=== PATIENT | female | born 1990 | race Caucasian/White ===

== ENCOUNTER 2016-09-19 16:27 | Inpatient (IN) | payer BC ==
--- NOTE | ~2016-09-19 | IDS ---
Interim Discharge Summary [facility] [address] [place]. [address] NAME: ALIZE ANTONIO : 89 STATUS : ADM IN [facility]#: [id number] AGE: 26 ADM/REG DATE : 09/19/16 MR#: [id number] REPORT SERV DATE: 09/22/16 DICTATED BY: JENNIFER MARINO DATE: 09/22/16 REPORT STATUS : Draft TRANSCRIBED BY: HERIBERTO DATE: 09/22/16 ADMISSION DATE: 09/19/2016 DISCHARGE DATE: CURRENT HOSPITAL DIAGNOSES: Recurrent deep vein thrombosis, left lower extremity. Possible hypercoagulable state. CONSULTATIONS: Dr. Borjas of Hematology and Dr. Presley of Vascular Surgery. PROCEDURES: 1. Venous Doppler of the lower extremities done on the showing extensive DVT in the left lower extremity. 2. Venogram done on the . CURRENT PHYSICAL FINDINGS AND HISTORY OF PRESENT ILLNESS: Please see initial dictated H and P by myself. In brief, the patient was accepted as a transfer from [facility] for recurrent lower extremity DVT, beginning several days prior to admission. HOSPITAL COURSE: Initial vital signs were clinically stable and afebrile. Records from outlying facility were reviewed, including her ultrasound, CT results. Initial lab work here was unremarkable as far as a BMP and CMP were concerned. She also had normal TSH and LFTs. HCG was negative. PAOLA was less than 1:40. CBC was unremarkable. D-dimer was 0.47, fibrinogen 422, INR 1.2. She has hypercoagulable lab, currently pending. The patient was admitted, placed on a heparin drip. Vascular was consulted as there was some concern of stent to stenosis on her outlying CT. Reasonable pain medications were given. Her home medications were started. Repeat ultrasound here seem to indicate acute DVT, somewhat concurrent with her transfer ultrasound. Vascular was consulted. They recommended venogram, which was done on the . The patient is currently postop without complications. Plan is to continue her hypercoagulable workup and recommend outpatient anticoagulant therapy, any further procedures per Vascular and coordinate care with her MECHANICS SUPERVISOR, who is planning a colposcopy in the near future. WARREN/HERIBERTO Jennifer Marino M.D. / [id number] CC: José Miguel Rebollar M.D.
--- NOTE | ~2016-09-19 | OP ---
Record Of Operation [facility] [address] [place]. [address] NAME: ALIZE ANTONIO : [birth year] STATUS : ADM IN [facility]#: [id number] AGE: 26 ADM/REG DATE : 09/19/16 MR#: [id number] REPORT SERV DATE: 09/26/16 DICTATED BY: RAHEEM PRESLEY DATE: 09/25/16 REPORT STATUS : Draft TRANSCRIBED BY: MODL DATE: 09/25/16 DATE OF PROCEDURE: 09/19/2016 PREOPERATIVE DIAGNOSIS: Deep venous thrombosis, left leg. POSTOPERATIVE DIAGNOSIS: Deep venous thrombosis, left leg. PROCEDURE: 1. Left leg venogram. 2. Percutaneous thrombectomy, left common femoral and iliac veins. 3. Angioplasty of left external iliac vein. SURGEON: Raheem Presley M.D. ANESTHESIA: General. COMPLICATIONS: None. ESTIMATED BLOOD LOSS: 1000. HISTORY: The patient is a 26-year-old female with a history of DVT. We actually performed thrombectomy two days ago, she rethrombosed. I started her on argatroban earlier today and plan is for repeat thrombectomy. This was discussed with the patient and mother, they expressed understanding and desired to proceed. DESCRIPTION OF PROCEDURE: The patient was taken to the operating room and placed in the supine position. She was given general anesthesia without complication. Her left thigh was prepped and draped in the sterile fashion. Ultrasound was used to identify the femoral vein in the proximal thigh. This was actually accessed with a micropuncture needle. Wire was passed easily. Needle was removed. Micropuncture sheath was placed. Wire was placed, sheath exchanged for an 8-Micronesian sheath. Venogram showed thrombus starting at the common femoral vein. Wire was placed. The 8-Micronesian Penumbra device with a separator was used to thrombectomize the common femoral and iliac veins. Venogram showed improvement in the proximal external iliac vein with residual thrombus. Additional thrombectomy was performed. Repeat venogram shows residual thrombus. Additional thrombectomy was performed. Venogram showed proximally to be prompt flow with no thrombus. There was still thrombus in the common femoral vein, distal external iliac vein. A 4-Kingston was passed through the 8- Micronesian sheath followed by 5-Kingston and thrombectomy was performed. Venogram shows improvement with some still residual thrombus. Distal thrombectomy was performed with device and separator. There was still distal thrombus after multiple additional attempts. The blood loss was close to 1000 at this point. It was felt minimizing blood loss would be imperative to rest of the case. The 5-Kingston was inflated in the proximal external iliac vein and 6 mg of tPA were infiltrated throughout the distal external iliac vein and this allowed set for eight minutes. Post venogram showed some minimal improved flow. There was essentially patent common femoral vein. External iliac vein was a residual thrombus distally with proximal external iliac vein and common iliac vein to be patent. A Record Of Operation [facility] [address] [facility] [place]. [address] NAME: ALIZE ANTONIO : 89 STATUS : ADM IN [facility]#: [id number] AGE: 26 ADM/REG DATE : 09/19/16 MR#: [id number] REPORT SERV DATE: 09/26/16 DICTATED BY: RAHEEM PRESLEY DATE: 09/25/16 REPORT STATUS : Draft TRANSCRIBED BY: HERIBERTO DATE: 09/25/16 10 x 40 balloon was used to angioplastied the external iliac vein followed by the common iliac vein. Final venogram shows these not to be widely patent with excellent prompt flow. No residual stenosis or thrombus. This was felt to be excellent result. The sheath was removed, pressure was held, hemostasis was achieved. The patient tolerated the procedure well. She was taken to the recovery room in stable condition. KATE/HERIBERTO Raheem Presley M.D. / [id number] CC: MD Adrianna Mancia M.D.
--- NOTE | ~2016-09-19 | HP ---
History And Physical [facility] [address] [place]. [address] NAME: ALIZE ANTONIO : [birth year] STATUS : ADM IN [facility]#: [id number] AGE: 26 ADM/REG DATE : 09/19/16 MR#: [id number] REPORT SERV DATE: 09/19/16 DICTATED BY: JENNIFER MARINO DATE: 09/19/16 REPORT STATUS : Draft TRANSCRIBED BY: MODL DATE: 09/19/16 DATE OF ADMISSION: 09/19/2016 CHIEF COMPLAINT: Pain and swelling, left lower extremity. HISTORY OF PRESENT ILLNESS: The patient is a 26-year-old female. She has a past history of multiple blood clots in the past, she states that she has had both left and right-sided, some have been associated with pulmonary embolism. She has had stenting done. She has had clot evacuations done in the past. She is not certain whether she has had an IVC filter placed in the past. She was originally diagnosed at the of her child. She states she was told that she had protein C, protein S, and lupus anticoagulant abnormalities. She was treated by food and nutrition services supervisor in [place]. She has moved down to the [facility] and has established care with Dr. Borjas. She states that she has been told now on review of her records she did not have the above deficiencies. Her previous anticoagulant regimens, she initially started with Coumadin. She did have recurrent clotting, but it was in association with low INRs. She states her targeted goal was above 3. She would get down as low as 1.9. She then went to Lovenox and then transitioned over to Xarelto. She did have a clotting on Xarelto, but there were some associated missed dose with the Xarelto. She then went back to Lovenox and then was transitioned to Eliquis. She is very specific that she has only missed one dose of the Eliquis, possibly Thursday or Thursday night. She had a remote dental procedure where she had to hold it, but she had no immediate problems, and it was a very brief hold. She went to [facility] and had an ultrasound showing a DVT. She requested transfer here for hematology consultation. PAST MEDICAL HISTORY: She states in addition to above, she has had ADD, epilepsy, anxiety, and depression. PAST SURGICAL HISTORY: She has had stent placements and thrombectomies in the past. MEDICATIONS: Currently awaiting Pharmacy. However, on her transfer records, she notes Klonopin 1 mg q.i.d., Lamictal 100, nortriptyline 50 b.i.d., Keppra 500 b.i.d., aspirin 81, and Eliquis 5 b.i.d. ALLERGIES: SHE STATES MORPHINE. FAMILY HISTORY: Both parents are living. She states both parents have trouble with blood clots, anxiety, and depression. Her father has been diagnosed with protein C as well as a grandmother and a sister. SOCIAL HISTORY: She is a obbox-scbxgrcbw-sib-day smoker. No EtOH. REVIEW OF SYSTEMS: HEENT: No complaints. CARDIOVASCULAR: No complaints. PULMONARY: As covered in HPI. GENITOURINARY: She states she has had an abnormal Pap smear and has procedure planned for History And Physical [address] [address] NAME: ALIZE ANTONIO : [birth year] STATUS : ADM IN [facility]#: [id number] AGE: 26 ADM/REG DATE : 09/19/16 MR#: [id number] REPORT SERV DATE: 09/19/16 DICTATED BY: JENNIFER MARINO DATE: 09/19/16 REPORT STATUS : Draft TRANSCRIBED BY: HERIBERTO DATE: 09/19/16 next week. NEUROMUSCULOSKELETAL: She complains of pain and cramping mostly in her left upper thigh. Otherwise 14-point review of systems is negative. PHYSICAL EXAMINATION: VITAL SIGNS: BP 103/55, temperature 97, pulse is 76, respirations 20, and sats 98%. GENERAL: She is awake, alert, and appropriate. HEENT: Normocephalic, atraumatic. Sclerae nonicteric. NECK: Supple. HEART: Regular rate and rhythm. LUNGS: Clear to auscultation. ABDOMEN: Nondistended. LOWER EXTREMITIES: She does not have any redness to the either lower extremity. She complains of pain in the left upper thigh. There does seem to be disproportional swelling in the left upper thigh. LABORATORY DATA: Lab from transferring facility: White count 6.1, H and H are 12.4 and 38.1, platelets are 277. Sodium 141, potassium 4.3, chloride 104, CO2 of 23, BUN and creatinine are 10 and 0.8 with a glucose of 97. Ultrasound report occlusive or near occlusive thrombus in the left lower extremity from the level of the superficial femoral vein to the calf veins. No DVT noted in the right lower extremity. Stents are noted extending into the common femoral veins bilaterally. CT abdomen and pelvis: No acute process is identified in the abdomen or pelvis. Stents are identified extending from the central inferior vena cava through the iliac vein into the common femoral veins bilaterally. The superior aspect of the stent which extends through the right iliac veins and into the right common femoral veins. It is significantly compressed and/or narrowed. The main portal vein, intrahepatic portal vein, and splenic veins are patent. Additional lab: Urinalysis with LE was 2+ moderate, blood was 3+, 10-15 wbc's, 1+ epithelial cells. HCG was negative. ASSESSMENT: 1. Deep venous thrombosis. 2. Suspicion of hypercoagulable state. 3. Recent abnormal Pap smear. 4. Possible urinary tract infection. PLAN: The patient has been admitted. She was transferred here on a heparin drip. We will consult Hematology for guidance on anticoagulants and further workup. We will review and continue home medications for chronic medical problems. Reasonable pain medications will be given. History And Physical [address] [address] NAME: ALIZE ANTONIO : [birth year] STATUS : ADM IN [facility]#: [id number] AGE: 26 ADM/REG DATE : 09/19/16 MR#: [id number] REPORT SERV DATE: 09/19/16 DICTATED BY: JENNIFER MARINO DATE: 09/19/16 REPORT STATUS : Draft TRANSCRIBED BY: HERIBERTO DATE: 09/19/16 TLF/HERIBERTO Jennifer Marino M.D. / [id number] CC: Jennifer Marino M.D. UNKNOWN
--- NOTE | ~2016-09-19 | OP ---
Record Of Operation [facility] [address] [place]. [address] NAME: ALIZE ANTONIO : [birth year] STATUS : ADM IN [facility]#: [id number] AGE: 26 ADM/REG DATE : 09/19/16 MR#: [id number] REPORT SERV DATE: 09/22/16 DICTATED BY: RAHEEM PRESLEY DATE: 09/22/16 REPORT STATUS : Draft TRANSCRIBED BY: MODL DATE: 09/22/16 DATE OF PROCEDURE: 09/22/2016 PREOPERATIVE DIAGNOSIS: Deep vein thrombosis, left leg with extensive pain and swelling. POSTOPERATIVE DIAGNOSIS: Deep vein thrombosis, left leg with extensive pain and swelling. PROCEDURE: 1. Left leg venogram. 2. Percutaneous thrombectomy, left common femoral vein and iliac veins. 3. Angioplasty, iliac veins. SURGEON: Raheem Presley M.D. ANESTHESIA: General. COMPLICATIONS: None. BLOOD LOSS: Minimal. HISTORY: The patient is a 26-year-old female with extensive DVT history, all treated in [place]. She presented with acute pain and swelling in her left leg after missing one dose of her anticoagulant. Ultrasound confirmed thrombus in her femoral and iliac vein stents. It was felt she would benefit from venogram with intervention due to her significant symptoms. It was discussed in detail with the patient and mother, they expressed understanding and desired to proceed. PROCEDURE IN DETAIL: The patient was taken to the operating room and placed in the supine position. She was given general anesthesia without complication. Her left groin and thigh were prepped and draped in sterile fashion. Ultrasound was used to identify the femoral vein below the area of the stents and thrombus. This was accessed with a micropuncture needle. Wire was passed easily. Needle was removed. Micropuncture sheath was placed. Venogram shows thrombus in the common femoral vein and iliac veins. There were stents that go from the inferior vena cava throughout both iliac and common femoral veins. Wire was passed easily into the inferior vena cava. The sheath was exchanged for an 8-Martiniquais sheath. The patient was on a heparin drip, which was continued throughout the case. The Zelante AngioJet was used to thrombectomize the stents from the common femoral vein to the IVC with total of 75 mL. These stents were then pulse-sprayed with 10 mg of tPA and let set for 20 minutes. The area was re-thrombectomized after 20 minutes with 75 mL. Venogram showed prompt flow. There was mild residual thrombus and irregularity in the iliac stents. This was re-thrombectomized for another 25 mL. Venogram shows prompt flow with residual stenosis. An 8 x 100 balloon was used to angioplasty the iliac veins. Post venogram shows mild residual irregularity in the mid iliac vein. This area was re-thrombectomized with another 25 mL. Final venogram shows the common femoral vein, iliac vein on the left, and the inferior vena cava stent to be widely patent with prompt flow with minimal residual irregularity, which was not significant. There was felt to be an excellent result. The Record Of Operation [facility] [address] [place]. [address] NAME: ALIZE ANTONIO : 89 STATUS : ADM IN [facility]#: [id number] AGE: 26 ADM/REG DATE : 09/19/16 MR#: [id number] REPORT SERV DATE: 09/22/16 DICTATED BY: RAHEEM PRESLEY DATE: 09/22/16 REPORT STATUS : Draft TRANSCRIBED BY: HERIBERTO DATE: 09/22/16 sheath was removed. Pressure held on the left side until hemostasis was achieved. The patient tolerated the procedure well. She was taken to the recovery room in stable condition. KATE/HERIBERTO Raheem Presley M.D. / [id number] CC: José Miguel Rebollar M.D.
--- NOTE | ~2016-09-19 | DS ---
Discharge Summary [facility] [address] [place]. [address] NAME: ALIZE ANTONIO : 89 STATUS : DIS IN PAT#: [id number] AGE: 26 ADM/REG DATE : 09/19/16 MR#: [id number] REPORT SERV DATE: 09/29/16 DICTATED BY: HAMILTON PEARCE DATE: 09/29/16 REPORT STATUS : Draft TRANSCRIBED BY: MODL DATE: 09/29/16 ADMISSION DATE: 09/19/2016 DISCHARGE DATE: 09/29/2016 DISCHARGE DIAGNOSES: 1. Acute recurrent DVT in the left lower extremity, status post 2 thrombectomies and venograms. 2. Hypocoagulability. 3. Anxiety, poorly controlled. 4. Abnormal Pap smear. 5. Episode of abdominal pain and CT findings suggesting colitis likely secondary to a postop constipation. CONSULTS: 1. Heme-Onc. 2. Vascular Surgery. PROCEDURES: 1. A thrombectomy with venogram and angioplasty of the left external iliac vein on 09/22/2016. 2. The same procedure above done again on 09/25/2016 due to a rethrombosis. HOSPITAL COURSE: This is a 26-year-old lady with unspecified hypercoagulability who presented to the hospital with acute recurrent left lower extremity DVT. For details, please refer to H and P by Dr. Becker. In summary, the patient was admitted for the left lower extremity recurrent DVT. Vascular Surgery was consulted, and they performed thrombectomy as well as venogram and angioplasty of the external iliac vein on 09/22/2016 as mentioned above. The patient apparently has an unspecified hypercoagulability state for which the patient has been chronically anticoagulated. The patient has actually failed Coumadin therapy as well as Lovenox, Xarelto, Eliquis. Also notably during her hospital stay here despite being maintained on heparin drip, the patient actually had a rethrombosis of left lower extremity for which she had to have a thrombectomy and venogram and angioplasty again. At that point in time, the patient was discontinued off the heparin drip and was maintained on argatroban drip instead. Thankfully, the patient did not experience rethrombosis, and the patient was transitioned to Pradaxa. Notably, the patient was worked up for hypercoagulability workup which was basically negative. The patient did have a decreased protein C levels but with normal protein C activity suggesting potentially a protein-C deficiency versus a protein C deficiency from consumptive process. Throughout the hospital stay, patient exhibited poorly controlled anxiety, frequently becoming tearful, as well as a very demanding. The patient was given lots of emotional support. The patient was also encouraged to seek a second opinion as patient expressed frustration about not being able to really diagnose what her underlying hematologic disorder was and that she expressed significant anxiety about having a thrombosis again. Of note, there has been questionable compliance with anticoagulation therapy as an outpatient. However, it is also difficult to ignore the fact that patient rethrombosed while on heparin drip during this hospital stay. In any case, the patient is being discharged home with close outpatient followup Discharge Summary [address] [address] NAME: ALIZE ANTONIO : 89 STATUS : DIS IN PAT#: [id number] AGE: 26 ADM/REG DATE : 09/19/16 MR#: [id number] REPORT SERV DATE: 09/29/16 DICTATED BY: HAMILTON PEARCE DATE: 09/29/16 REPORT STATUS : Draft TRANSCRIBED BY: HERIBERTO DATE: 09/29/16 instructions. DISCHARGE MEDICATIONS: 1. Pradaxa 150 mg p.o. b.i.d. 2. Percocet 5/325 one tab p.o. q.6 hours p.r.n. for pain with 15 tablets. Otherwise, no medication changes. DISPOSITION: Home. FOLLOWUP: Please follow up with Dr. Borjas, her process checker in the next week. Total of 40 minutes spent in coordinating this patient's discharge today. IZZY/HERIBERTO Hamilton Pearce MD / [id number] CC: MD Adrianna Mancia M.D.
[2016-09-19 17:30] LABS: INTERNATIONAL NORMAL RATI 1.2 UNITS (-); PROTIME (NOT ORD) 14.8 SEC (12.0-14.5)
[2016-09-19 17:31] LABS: PARTIAL THROMBO TIME 59.2 SEC (22.5-37.2)
[2016-09-20 15:04] LABS: BASOPHILS 0.2 %; BASOPHILS ABSOLUTE 0.01 10/3/uL (0.0-0.16); EOSINOPHILS 4.4 %; EOSINOPHILS ABSOLUTE 0.24 10/3/uL (0.0-0.53); HEMOGLOBIN 12.2 g/dL (12.0-16.0); IMMATURE GRANULOCYTES 0.2 %; IMMATURE GRANULOCYTES ABSOLUTE 0.01 10/3/uL (0.0-0.11); LYMPHOCYTES 37.4 %; LYMPHOCYTES ABSOLUTE 2.02 10/3/uL (0.67-4.30); MEAN CORPUS HGB CONC 32.5 g/dL (32.0-36.0); MEAN CORPUSCULAR HEMOGLOB 28.4 pg (26.0-34.0); MONOCYTES 6.9 %; MONOCYTES ABSOLUTE 0.37 10/3/uL (0.21-1.20); NEUTROPHILS 50.9 %; NEUTROPHILS ABSOLUTE 2.75 10/3/uL (2.02-8.40); PLATELET COUNT 306 10/3/uL (150-400); RBC DISTRIBUTION WIDTH 14.4 % (12.0-16.0); RED CELL COUNT 4.29 10/6/uL (4.0-5.6); RETICULOCYTE COUNT 1.1 % (0.5-2.5); RETICULOCYTE COUNT ABSOLUTE 46.8 10/3/uL (20.2-119.8); WHITE BLOOD CELLS 5.4 10/3/uL (4.5-10.5)
[2016-09-20 15:05] LABS: HEMATOCRIT 37.5 % (36.0-48.0); MEAN CORPUSCULAR VOLUME 87.4 fL (80-100)
[2016-09-20 15:06] LABS: MANUAL DIFF NO %
[2016-09-20 15:23] LABS: BUN (BLOOD UREA NITROGEN) 10 MG/DL (6-23); CALCIUM, SERUM 8.7 MG/DL (8.5-10.4); CHLORIDE, SERUM 106 MMOL/L (96-112); CREATININE 0.86 MG/DL (0.55-1.02); GFR AFRICAN AMERICAN 109 ML/MIN (>=60); GFR NON AFRICAN AMERICAN 94 ML/MIN (>=60); GLUCOSE, SERUM 80 MG/DL (60-99); POTASSIUM, SERUM 4.2 MMOL/L (3.5-5.3); SGOT(AST) 10 U/L (5-40); SGPT(ALT) 17 U/L (5-65); SODIUM, SERUM 141 MMOL/L (135-148); TOTAL BILIRUBIN 0.2 MG/DL (0-1.2); TOTAL PROTEIN 7.2 G/DL (6.0-8.5)
[2016-09-20 15:25] LABS: A/G RATIO 0.9 (0.7-1.9); ALBUMIN 3.4 G/DL (3.5-5.0); ALKALINE PHOSPHATASE 67 U/L (45-117); CO2 (CARBON DIOXIDE) 29 MMOL/L (24-34); GLOBULIN 3.8 G/DL (2.5-4.1)
[2016-09-20 16:54] LABS: SED RATE 21 MM/HR (0-20)
[2016-09-20] MEDS ORDERED: NOR50 PO (17:14)
[2016-09-20] MEDS ORDERED: ELIQUIS 5 MG TAB5 MG PO (17:15)
[2016-09-20] MEDS ORDERED: LAMICTAL10 PO (17:15)
[2016-09-20] MEDS ORDERED: KLONO1 PO (17:15)
[2016-09-20] MEDS ORDERED: KEPPRA500 PO (17:15)
[2016-09-20] MEDS ORDERED: ASAB PO (17:15)
[2016-09-20] MEDS ORDERED: NEUR300 PO (17:15)
[2016-09-20] MEDS ORDERED: AUG875 PO (17:16)
[2016-09-20 17:47] LABS: IMMUNOGLOBULIN A 239 MG/DL (70-420); IMMUNOGLOBULIN G 702 MG/DL (673-1464); IMMUNOGLOBULIN M 77 MG/DL (30-270)
[2016-09-20 22:25] LABS: PARTIAL THROMBO TIME 70.9 SEC (22.5-37.2)
[2016-09-20 22:27] LABS: D-DIMER QUANTITATIVE 0.47 ug/mLFEU (< 0.50)
[2016-09-22 07:38] LABS: ANA TITER <1:40 TITER
[2016-09-22 14:23] LABS: BASOPHILS 0.2 %; BASOPHILS ABSOLUTE 0.01 10/3/uL (0.0-0.16); EOSINOPHILS 4.8 %; EOSINOPHILS ABSOLUTE 0.26 10/3/uL (0.0-0.53); HEMATOCRIT 37.7 % (36.0-48.0); HEMOGLOBIN 12.6 g/dL (12.0-16.0); IMMATURE GRANULOCYTES 0.2 %; IMMATURE GRANULOCYTES ABSOLUTE 0.01 10/3/uL (0.0-0.11); LYMPHOCYTES 36.9 %; LYMPHOCYTES ABSOLUTE 1.98 10/3/uL (0.67-4.30); MANUAL DIFF NO %; MEAN CORPUS HGB CONC 33.4 g/dL (32.0-36.0); MEAN CORPUSCULAR HEMOGLOB 29.3 pg (26.0-34.0); MEAN CORPUSCULAR VOLUME 87.7 fL (80-100); MEAN PLATELET VOLUME 8.8 fL (9.2-13.0); MONOCYTES 5.4 %; MONOCYTES ABSOLUTE 0.29 10/3/uL (0.21-1.20); NEUTROPHILS 52.5 %; NEUTROPHILS ABSOLUTE 2.82 10/3/uL (2.02-8.40); PLATELET COUNT 288 10/3/uL (150-400); RBC DISTRIBUTION WIDTH 13.7 % (12.0-16.0); WHITE BLOOD CELLS 5.4 10/3/uL (4.5-10.5)
[2016-09-22 14:47] LABS: CHLORIDE, SERUM 105 MMOL/L (96-112); POTASSIUM, SERUM 4.3 MMOL/L (3.5-5.3); SODIUM, SERUM 144 MMOL/L (135-148)
[2016-09-22 15:06] LABS: BUN (BLOOD UREA NITROGEN) 8 MG/DL (6-23); CALCIUM, SERUM 8.6 MG/DL (8.5-10.4); CO2 (CARBON DIOXIDE) 28 MMOL/L (24-34); CREATININE 0.81 MG/DL (0.55-1.02); GFR AFRICAN AMERICAN 117 ML/MIN (>=60); GFR NON AFRICAN AMERICAN 101 ML/MIN (>=60); GLUCOSE, SERUM 82 MG/DL (60-99)
[2016-09-23 03:26] LABS: BASOPHILS 0 %; EOSINOPHILS 0 %; HEMOGLOBIN 11.9 g/dL (12.0-16.0); IMMATURE GRANULOCYTES 0.1 %; IMMATURE GRANULOCYTES ABSOLUTE 0.01 10/3/uL (0.0-0.11); LYMPHOCYTES 8.4 %; LYMPHOCYTES ABSOLUTE 0.58 10/3/uL (0.67-4.30); MANUAL DIFF NO %; MEAN CORPUSCULAR HEMOGLOB 29.6 pg (26.0-34.0); MEAN CORPUSCULAR VOLUME 87.1 fL (80-100); MEAN PLATELET VOLUME 8.7 fL (9.2-13.0); MONOCYTES 4.2 %; MONOCYTES ABSOLUTE 0.29 10/3/uL (0.21-1.20); NEUTROPHILS 87.3 %; NEUTROPHILS ABSOLUTE 6.02 10/3/uL (2.02-8.40); PLATELET COUNT 279 10/3/uL (150-400); RBC DISTRIBUTION WIDTH 13.3 % (12.0-16.0); RED CELL COUNT 4.02 10/6/uL (4.0-5.6); WHITE BLOOD CELLS 6.9 10/3/uL (4.5-10.5)
[2016-09-23 03:33] LABS: PARTIAL THROMBO TIME 77.1 SEC (22.5-37.2)
[2016-09-23 04:18] LABS: ASCORBIC ACID (UR NOT ORDER) NEG (NEG); BILIRUBIN, URINE NEGATIVE (NEG); KETONE, URINE NEGATIVE (NEG); LEUKOCYTE ESTERASE(NOT OR NEG (NEG); WBC (NOT ORDERED) (RFLEX) 7 (0-5)
[2016-09-23 04:49] LABS: CALCIUM, SERUM 8.3 MG/DL (8.5-10.4); CHLORIDE, SERUM 104 MMOL/L (96-112); CO2 (CARBON DIOXIDE) 25 MMOL/L (24-34); SODIUM, SERUM 140 MMOL/L (135-148)
[2016-09-23 04:52] LABS: BUN (BLOOD UREA NITROGEN) 14 MG/DL (6-23); CREATININE 1.46 MG/DL (0.55-1.02); GFR AFRICAN AMERICAN 57 ML/MIN (>=60); GFR NON AFRICAN AMERICAN 50 ML/MIN (>=60); GLUCOSE, SERUM 155 MG/DL (60-99); POTASSIUM, SERUM 4.5 MMOL/L (3.5-5.3)
[2016-09-23 09:42] LABS: PROTIME (NOT ORD) 13.2 SEC (12.0-14.5)
[2016-09-23 10:26] LABS: PARTIAL THROMBO TIME 67.5 SEC (22.5-37.2)
[2016-09-23 20:18] LABS: IMMUNOGLOBULIN E 2.7 kU/L (0.0-158.0)
[2016-09-24 08:15] LABS: BASOPHILS 0.2 %; BASOPHILS ABSOLUTE 0.01 10/3/uL (0.0-0.16); EOSINOPHILS ABSOLUTE 0.25 10/3/uL (0.0-0.53); HEMATOCRIT 34.8 % (36.0-48.0); IMMATURE GRANULOCYTES ABSOLUTE 0.06 10/3/uL (0.0-0.11); LYMPHOCYTES 38.1 %; LYMPHOCYTES ABSOLUTE 2.38 10/3/uL (0.67-4.30); MEAN CORPUSCULAR HEMOGLOB 28.1 pg (26.0-34.0); MEAN CORPUSCULAR VOLUME 88.8 fL (80-100); MEAN PLATELET VOLUME 8.8 fL (9.2-13.0); MONOCYTES 8.5 %; MONOCYTES ABSOLUTE 0.53 10/3/uL (0.21-1.20); NEUTROPHILS 48.2 %; NEUTROPHILS ABSOLUTE 3.02 10/3/uL (2.02-8.40); PLATELET COUNT 232 10/3/uL (150-400); RBC DISTRIBUTION WIDTH 14.1 % (12.0-16.0); RED CELL COUNT 3.92 10/6/uL (4.0-5.6); WHITE BLOOD CELLS 6.3 10/3/uL (4.5-10.5)
[2016-09-24 08:16] LABS: MANUAL DIFF NO %; MEAN CORPUS HGB CONC 31.6 g/dL (32.0-36.0)
[2016-09-24 08:23] LABS: PARTIAL THROMBO TIME 103.4 SEC (22.5-37.2)
[2016-09-24 08:36] LABS: BUN (BLOOD UREA NITROGEN) 18 MG/DL (6-23); CALCIUM, SERUM 7.9 MG/DL (8.5-10.4); CHLORIDE, SERUM 110 MMOL/L (96-112); CO2 (CARBON DIOXIDE) 27 MMOL/L (24-34); CREATININE 1.53 MG/DL (0.55-1.02); GFR AFRICAN AMERICAN 54 ML/MIN (>=60); GFR NON AFRICAN AMERICAN 47 ML/MIN (>=60); GLUCOSE, SERUM 79 MG/DL (60-99); POTASSIUM, SERUM 4.6 MMOL/L (3.5-5.3); SODIUM, SERUM 144 MMOL/L (135-148); TROPONIN I <0.02 NG/ML (<0.05)
[2016-09-24 13:19] LABS: DRVVT 47.1 sec (31.8-45.7); DRVVT CONFIRM RATIO CHG ND; DRVVT MIX RATIO 1.2 (0.0-1.2); DRVVT MIX RATIO CHG YES; HEXPHOSPHOLIPID NEUTRALIZATION <1.0 sec (<9.2)
[2016-09-24 13:31] LABS: IMMUNOGLOBULIN D 1.3 mg/dL (<15.4)
[2016-09-24 13:47] LABS: PROTEIN C ACTIVITY 95 % (70-145)
[2016-09-24 14:14] LABS: PROTEIN C ANTIGEN 55 % (70-140); PROTEIN S FREE 100 % (52-150)
[2016-09-25] MEDS ORDERED: PRADAXA150 MG PO (10:31)
[2016-09-25 14:06] LABS: BUN (BLOOD UREA NITROGEN) 15 MG/DL (6-23); CALCIUM, SERUM 8.1 MG/DL (8.5-10.4); CHLORIDE, SERUM 116 MMOL/L (96-112); CREATININE 1.38 MG/DL (0.55-1.02); GFR AFRICAN AMERICAN 61 ML/MIN (>=60); GFR NON AFRICAN AMERICAN 53 ML/MIN (>=60); SODIUM, SERUM 147 MMOL/L (135-148)
[2016-09-25 14:07] LABS: CO2 (CARBON DIOXIDE) 21 MMOL/L (24-34); GLUCOSE, SERUM 103 MG/DL (60-99)
[2016-09-25 15:01] LABS: HIT PTT 38.1 SEC (22.5-37.2); INTERNATIONAL NORMAL RATI 1.2 UNITS (-); PARTIAL THROMBO TIME 38.1 SEC (22.5-37.2); PROTIME (NOT ORD) 14.7 SEC (12.0-14.5)
[2016-09-25 15:10] LABS: ALBUMIN 2.9 G/DL (3.5-5.0); ALKALINE PHOSPHATASE 57 U/L (45-117); SGPT(ALT) 20 U/L (5-65); TOTAL BILIRUBIN 0.3 MG/DL (0-1.2); TOTAL PROTEIN 6.1 G/DL (6.0-8.5)
[2016-09-25 15:11] LABS: DIRECT BILIRUBIN < 0.1 MG/DL (0.0-0.4); INDIRECT BILIRUBIN(NOT ORDER) 0.2 MG/DL (0.1-0.9); SGOT(AST) 20 U/L (5-40)
[2016-09-25 22:46] LABS: HEMATOCRIT 26.6 % (36.0-48.0); HEMOGLOBIN 8.4 g/dL (12.0-16.0)
[2016-09-26 07:26] LABS: BUN (BLOOD UREA NITROGEN) 12 MG/DL (6-23); CALCIUM, SERUM 8.4 MG/DL (8.5-10.4); CHLORIDE, SERUM 110 MMOL/L (96-112); CO2 (CARBON DIOXIDE) 21 MMOL/L (24-34); CREATININE 1.46 MG/DL (0.55-1.02); GFR AFRICAN AMERICAN 57 ML/MIN (>=60); GFR NON AFRICAN AMERICAN 50 ML/MIN (>=60); GLUCOSE, SERUM 160 MG/DL (60-99); POTASSIUM, SERUM 4.8 MMOL/L (3.5-5.3); SODIUM, SERUM 143 MMOL/L (135-148)
[2016-09-26 07:30] LABS: BASOPHILS 0 %; EOSINOPHILS 0.2 %; EOSINOPHILS ABSOLUTE 0.01 10/3/uL (0.0-0.53); IMMATURE GRANULOCYTES 0.6 %; IMMATURE GRANULOCYTES ABSOLUTE 0.03 10/3/uL (0.0-0.11); LYMPHOCYTES 7.5 %; LYMPHOCYTES ABSOLUTE 0.39 10/3/uL (0.67-4.30); MEAN CORPUSCULAR HEMOGLOB 28.8 pg (26.0-34.0); MEAN PLATELET VOLUME 8.8 fL (9.2-13.0); MONOCYTES 1.5 %; MONOCYTES ABSOLUTE 0.08 10/3/uL (0.21-1.20); NEUTROPHILS 90.2 %; NEUTROPHILS ABSOLUTE 4.71 10/3/uL (2.02-8.40); PLATELET COUNT 240 10/3/uL (150-400); RBC DISTRIBUTION WIDTH 13.7 % (12.0-16.0); RED CELL COUNT 3.72 10/6/uL (4.0-5.6); WHITE BLOOD CELLS 5.2 10/3/uL (4.5-10.5)
[2016-09-26 07:35] LABS: HEMATOCRIT 31.8 % (36.0-48.0); HEMOGLOBIN 10.7 g/dL (12.0-16.0); MANUAL DIFF NO %; MEAN CORPUS HGB CONC 33.6 g/dL (32.0-36.0); MEAN CORPUSCULAR VOLUME 85.5 fL (80-100)
[2016-09-26 13:30] LABS: HEPARIN-INDUCED PLATELET AB NEGATIVE (NEGATIVE); HIT PATIENT O.D. 0.137 OD (0.000-0.299)
[2016-09-27 08:42] LABS: BASOPHILS 0.1 %; BASOPHILS ABSOLUTE 0.01 10/3/uL (0.0-0.16); HEMATOCRIT 30.7 % (36.0-48.0); HEMOGLOBIN 10.3 g/dL (12.0-16.0); IMMATURE GRANULOCYTES 0.3 %; IMMATURE GRANULOCYTES ABSOLUTE 0.03 10/3/uL (0.0-0.11); LYMPHOCYTES 12.7 %; LYMPHOCYTES ABSOLUTE 1.29 10/3/uL (0.67-4.30); MEAN CORPUS HGB CONC 33.6 g/dL (32.0-36.0); MEAN CORPUSCULAR HEMOGLOB 28.9 pg (26.0-34.0); MEAN CORPUSCULAR VOLUME 86.2 fL (80-100); MEAN PLATELET VOLUME 8.9 fL (9.2-13.0); MONOCYTES 7.9 %; NEUTROPHILS ABSOLUTE 7.89 10/3/uL (2.02-8.40); PLATELET COUNT 250 10/3/uL (150-400); RBC DISTRIBUTION WIDTH 14.6 % (12.0-16.0); RED CELL COUNT 3.56 10/6/uL (4.0-5.6)
[2016-09-27 08:43] LABS: MANUAL DIFF NO %; WHITE BLOOD CELLS 10.1 10/3/uL (4.5-10.5)
[2016-09-27 08:50] LABS: BUN (BLOOD UREA NITROGEN) 16 MG/DL (6-23); CALCIUM, SERUM 8.2 MG/DL (8.5-10.4); CHLORIDE, SERUM 112 MMOL/L (96-112); CO2 (CARBON DIOXIDE) 24 MMOL/L (24-34); CREATININE 1.28 MG/DL (0.55-1.02); GFR AFRICAN AMERICAN 67 ML/MIN (>=60); GFR NON AFRICAN AMERICAN 58 ML/MIN (>=60); GLUCOSE, SERUM 90 MG/DL (60-99); POTASSIUM, SERUM 4.4 MMOL/L (3.5-5.3); SODIUM, SERUM 144 MMOL/L (135-148)
[2016-09-29 08:50] LABS: ASCORBIC ACID (UR NOT ORDER) NEG (NEG); BILIRUBIN, URINE NEGATIVE (NEG); KETONE, URINE NEGATIVE (NEG); LEUKOCYTE ESTERASE(NOT OR NEG (NEG); WBC (NOT ORDERED) (RFLEX) 2 (0-5)
[2016-09-29] MEDS ORDERED: LIPITOR40 PO (11:53)
[2016-09-29] MEDS ORDERED: PCET PO (11:53)
[2016-09-29 11:57] LABS: HEMOGLOBIN 9.8 g/dL (12.0-16.0); MANUAL DIFF YES %; MEAN CORPUS HGB CONC 33.8 g/dL (32.0-36.0); MEAN CORPUSCULAR HEMOGLOB 29.3 pg (26.0-34.0); MEAN CORPUSCULAR VOLUME 86.8 fL (80-100); MEAN PLATELET VOLUME 8.7 fL (9.2-13.0); PLATELET COUNT 262 10/3/uL (150-400); RBC DISTRIBUTION WIDTH 13.8 % (12.0-16.0); RED CELL COUNT 3.34 10/6/uL (4.0-5.6); WHITE BLOOD CELLS 8.2 10/3/uL (4.5-10.5)
[2016-09-29 12:03] LABS: PARTIAL THROMBO TIME 43.4 SEC (22.5-37.2)
[2016-09-29 12:12] LABS: A/G RATIO 0.8 (0.7-1.9); ALBUMIN 2.6 G/DL (3.5-5.0); ALKALINE PHOSPHATASE 48 U/L (45-117); BUN (BLOOD UREA NITROGEN) 12 MG/DL (6-23); CALCIUM, SERUM 8.1 MG/DL (8.5-10.4); CHLORIDE, SERUM 108 MMOL/L (96-112); CO2 (CARBON DIOXIDE) 24 MMOL/L (24-34); CREATININE 1.15 MG/DL (0.55-1.02); GFR AFRICAN AMERICAN 77 ML/MIN (>=60); GFR NON AFRICAN AMERICAN 66 ML/MIN (>=60); GLOBULIN 3.2 G/DL (2.5-4.1); GLUCOSE, SERUM 86 MG/DL (60-99); POTASSIUM, SERUM 4.1 MMOL/L (3.5-5.3); SGOT(AST) 17 U/L (5-40); SGPT(ALT) 17 U/L (5-65); SODIUM, SERUM 141 MMOL/L (135-148); TOTAL BILIRUBIN 0.2 MG/DL (0-1.2); TOTAL PROTEIN 5.8 G/DL (6.0-8.5)
[2016-09-29 12:23] LABS: EOSINOPHILS 4 %; EOSINOPHILS ABSOLUTE (CALC) 0.33 10/3/uL (0.0-0.53); LYMPHOCYTES 13 %; LYMPHOCYTES ABSOLUTE (CALC) 1.07 10/3/uL (0.67-4.30); MONOCYTES 6 %; MONOCYTES ABSOLUTE (CALC) 0.49 10/3/uL (0.21-1.20); NEUTROPHILS ABSOLUTE (CALC) 6.31 10/3/uL (2.02-8.40); SEGMENTED NEUTROPHIL (0) 77 %; TOTAL NUCLEATED CELLS 100
[2016-09-29 12:24] LABS: PLATELET ESTIMATE ADQ (ADEQUATE); RBC MORPHOLOGY NORM (NORMAL)
[2016-09-30 09:38] LABS: ANA TITER <1:40 TITER
[2016-10-02 13:12] LABS: ANTI-CARDIOLIPIN ANTIBODY IGA <1
== END 2016-09-29 14:56 | disposition home or self-care (01) | DRG 271 ==
LOC: 4SO 16:27
PROVIDERS: Internal Medicine; Internal Medicine Hematology & Oncology; Nurse Practitioner Family; Surgery
DX: T82.868A Thrombosis due to vascular prosthetic devices, implants and grafts, initial encounter (principal); I82.422 Acute embolism and thrombosis of left iliac vein; N17.9 Acute kidney failure, unspecified; I82.412 Acute embolism and thrombosis of left femoral vein; D68.62 Lupus anticoagulant syndrome; D62 Acute posthemorrhagic anemia; N39.0 Urinary tract infection, site not specified; F17.210 Nicotine dependence, cigarettes, uncomplicated; Y83.1 Surgical operation with implant of artificial internal device as the cause of abnormal reaction of the patient, or of later complication, without mention of misadventure at the time of the procedure; Y92.009 Unspecified place in unspecified non-institutional (private) residence as the place of occurrence of the external cause; G40.909 Epilepsy, unspecified, not intractable, without status epilepticus; F41.9 Anxiety disorder, unspecified; F32.9 Major depressive disorder, single episode, unspecified; Z79.82 Long term (current) use of aspirin; Z79.01 Long term (current) use of anticoagulants; Z79.891 Long term (current) use of opiate analgesic; Z88.5 Allergy status to narcotic agent; R31.9 Hematuria, unspecified; R89.6 Abnormal cytological findings in specimens from other organs, systems and tissues
CPT/HCPCS: 36010; 36415; 37187; 37188; 37214; 37248; 37249; 74000; 74176; 75820; 76775; 80048; 80053; 80076; 81001; 81241; 82330; 82784; 82785; 82803; 82947; 83605; 83615; 83735; 84132; 84295; 84484; 84703; 85014; 85018; 85025; 85045; 85049; 85302; 85303; 85306; 85379; 85384; 85610; 85613; 85652; 85670; 85730; 86022; 86039; 86146; 86146-59; 86147; 86255; 86850; 86900; 86901; 86920; 88184; 88185; 93005; 93970; 93971; A9270-GY; C1725; C1757; C1769; C1894; J0461; J0690; J0883; J1170; J1200; J2250; J2370; J2405; J2997; J3010; P9016; P9045; Q9966